=== PATIENT | male | born 1990 ===

== ENCOUNTER 2016-12-26 22:53 | Emergency (ER) | payer OTHER ==
[~2016-12-26] VITALS: Ht 180.3 cm; Wt 132.5 kg
[~2016-12-26 22:53] MED LIST: ALBU8.5H3 INH; BECL8.7A INH; CETI10CA PO; GUAI118L94 PO; IBUP-1542 PO; PRED50TA PO
[2016-12-26 23:26] VITALS: Ht 180.3 cm; Wt 132.5 kg
[2016-12-27] MEDS ORDERED: LEVALBUTEROL (NEB) 1.25 MG/0.5 ML AMP INH STA ×2 (00:08→02:12)
[2016-12-27] MEDS ORDERED: METHYLPREDNISOLONE 125 MG INJ IM STA (00:08)
[2016-12-27] MEDS ORDERED: IPRATROPIUM (NEB) 0.5 MG/2.5 ML AMP INH STA (00:08)
--- NOTE | 2016-12-27 01:33 | RADRPT ---
PROCEDURE: XR Chest. CLINICAL INDICATION: Asthma exacerbation TECHNIQUE: Single frontal view of the chest was obtained COMPARISON: 01/31/2016 FINDINGS: The heart and mediastinum are within normal limits. The lungs are clear. There is minimal peribronchial thickening could be secondary to history of asth ma. There is no pleural effusion or pneumothorax. IMPRESSION: Minimal peribronchial thickening which could be secondary to asthma. RPTAT: HJES .Ollie Nielsen MD, MD Date Time Electronically viewed and signed by .Ollie Nielsen MD, on 12/27/2016 01:33 .S/
[2016-12-27] MEDS ORDERED: ALBU18HF INHALATION (01:54)
[2016-12-27] MEDS ORDERED: PRED20TA PO (01:54)
--- NOTE | 2016-12-27 01:59 | ERD ---
ER Documentation Chief Complaint Date/Time DATE: 12/27/16 TIME: 01:55 Chief Complaint Asthma since 3 days ago. feeling worst today HPI 26-year-old male patient with a past medical history of asthma presents to the ED complaining of a cough that has been going on for 3 days. Reports that it is productive and he is coughing up whitish phlegm. States that he is also wheezing. Reports that he used his inhaler once. Denies any fever, chills, chest pain, abdominal pain, nausea, vomiting, diarrhea. Denies any recent traveling. Denies any leg swelling. ROS All systems reviewed and are negative except as per history of present illness. Medications Home Meds Active Scripts Albuterol Sulfate* (Ventolin HFA*) 18 Gm Hfa.aer.ad, 2 PUFF INHALATION Q4H, #1 INHALER Prov:ANNEL PADRON PA-C 12/27/16 Prednisone* (Prednisone*) 20 Mg Tab, 40 MG PO DAILY for 4 Days, TAB Prov:ANNEL PADRON PA-C 12/27/16 Beclomethasone Dip* (Qvar 40*) 7.3 Gm Inha, 2 PUFF INH BID, #1 INHALER Prov:MAEGAN ZIMMERMAN NP 01/31/16 Prednisone* (Prednisone*) 50 Mg Tablet, 50 MG PO DAILY, #5 TAB Prov:MAEGAN ZIMMERMAN NP 01/31/16 Ibuprofen* (Motrin*) 600 Mg Tab, 600 MG PO Q6H Y for PAIN AND OR ELEVATED TEMP, #30 TAB Prov:MAEGAN ZIMMERMAN NP 01/31/16 Cetirizine Hcl* (Zyrtec*) 10 Mg Capsule, 10 MG PO DAILY, #30 TAB.CHEW Prov:MAEGAN ZIMMERMAN NP 01/31/16 Guaifenesin-Codeine Phosphate* (Guaifenesin* with Codeine Liq) 120 Ml Liquid, 5 ML PO Q4H for COUGH, #60 ML Prov:MAEGAN ZIMMERMAN NP 01/31/16 Albuterol Sulfate* (Proair HFA*) 8.5 Gm Hfa.aer.ad, 2 PUFF INH Q4H Y for WHEEZING AND SOB, #1 INHALER Prov:MAEGAN ZIMMERMAN MENDOZA TTammi WELLS 01/31/16 Reported Medications Albuterol Sulfate* (Proair HFA*) Unknown Strength Hfa.aer.ad, INH Q6, #1 INHALER 01/31/16 Allergies Allergies: Coded Allergies: No Known Allergy (Unverified , 01/31/16) PMhx/Soc Medical and Surgical Hx: pt denies Medical Hx, pt denies Surgical Hx History of Surgery: No Anesthesia Reaction: No Hx Neurological Disorder: No Hx Respiratory Disorders: No (asthma) Hx Cardiac Disorders: No Hx Psychiatric Problems: No Hx Miscellaneous Medical Probl: No Hx Alcohol Use: No Hx Substance Use: No Hx Tobacco Use: No Physical Exam Vitals Vital Signs Date Time Temp Pulse Resp B/P Pulse Ox O2 Delivery O2 Flow Rate FiO2 12/27/16 00:39 88 24 93 21 12/26/16 23:26 97.4 105 30 134/84 95 Physical Exam Const: Zzz-hic-[id number], well-nourished. In no acute distress. Head: Atraumatic, normocephalic Eyes: Normal Conjunctiva without injection. No purulent discharge. PERRL. EOMI ENT: Normal external ear. Ear canal without erythema. Tympanic membrane pearly pederson without effusion or bulging. Nasal canal clear with normal turbinates. Moist oropharynx without tonsillar exudates. Non-erythematous pharynx. Uvula midline. No drooling. No trismus. Neck: Full range of motion. No meningismus. No cervical lymphadenopathy. Resp: Expiratory and inspiratory wheezing noted bilaterally. No rhonchi, rales , or crackles. No accessory muscle use. No retractions. Cardio: Regular rate and rhythm. No murmurs, rubs or gallops. Abd: Soft, non tender, non distended. Normal bowel sounds. No palpable masses. No rebound tenderness. No guarding. Skin: No petechiae or rashes Back: No midline tenderness. No CVA tenderness. Ext: No cyanosis, or edema. Neur: Awake and alert. Psych: Normal Mood and Affect Results 24 hrs Current Medications Medications (Trade) Dose Ordered Sig/Mayra Route PRN Reason Start Time Stop Time Status Last Admin Dose Admin Levalbuterol (Xopenex Neb) 5 mg ONCE STAT INH 12/27/16 00:08 12/27/16 00:10 DC 12/27/16 00:33 Ipratropium Lynn (Atrovent 0.02% (Neb)) 1 mg ONCE STAT INH 12/27/16 00:08 12/27/16 00:10 DC 12/27/16 00:32 Methylprednisolone Sodium Succinate (Solu-Medrol) 125 mg ONCE STAT IM 12/27/16 00:08 12/27/16 00:10 DC 12/27/16 00:28 Levalbuterol (Xopenex Neb) 5 mg ONCE STAT INH 12/27/16 02:12 12/27/16 02:14 DC 12/27/16 02:34 Procedures/MDM This is a 26-year-old male patient with a past medical history of asthma presents to the ED complaining of a cough that started 3 days ago and feels worse today. Patient is afebrile nontoxic appearing. Patient has normal vital signs. Patient is speaking in full sentences. A chest x-ray was ordered to further evaluate patient. A continuous breathing treatment consisting of 5 mg Xopenex, 1 mg Atrovent, 125 mg Solu-Medrol was ordered to further treat patient with improvement. PROCEDURE: XR Chest. CLINICAL INDICATION: Asthma exacerbation TECHNIQUE: Single frontal view of the chest was obtained COMPARISON: 01/31/2016 FINDINGS: The heart and mediastinum are within normal limits. The lungs are clear. There is minimal peribronchial thickening could be secondary to history of asthma. There is no pleural effusion or pneumothorax. IMPRESSION: Minimal peribronchial thickening which could be secondary to asthma. Patient likely has an asthma exacerbation. Low suspicion for atypical PA, pneumonia, pulmonary embolism, pneumothorax, cardiac tamponade, sinusitis, peritonsillar abscess, mastoiditis, Abraham's angina, retropharyngeal abscess, meningitis, sepsis or other emergent conditions. Patient's respiratory status has stabilized while in the department and is appropriate for outpatient work up. Exam and work up not consistent w/ impending respiratory failure or cardiovascular collapse. Discharge medications: Prednisone, Ventolin Follow up with primary care physician in 1-2 days. Instructed patient to return to the ED sooner for any worsening symptoms. Patient's questions were answered. Patient understood and agreed with discharge plan. Patient discharged stable. Departure Diagnosis: Primary Impression: Asthma attack Condition: Stable Patient Instructions: Asthma, Acute (Adult) Referrals: COMMUNITY CLINICS YOU HAVE RECEIVED A MEDICAL SCREENING EXAM AND THE RESULTS INDICATE THAT YOU DO NOT HAVE A CONDITION THAT REQUIRES URGENT TREATMENT IN THE EMERGENCY DEPARTMENT. FURTHER EVALUATION AND TREATMENT OF YOUR CONDITION CAN WAIT UNTIL YOU ARE SEEN IN YOUR DOCTORS OFFICE WITHIN THE NEXT 1-2 DAYS. IT IS YOUR RESPONSIBILITY TO MAKE AN APPOINTMENT FOR FOLOW-UP CARE. IF YOU HAVE A PRIMARY DOCTOR --you should call your primary doctor and schedule an appointment IF YOU DO NOT HAVE A PRIMARY DOCTOR YOU CAN CALL OUR PHYSICIAN REFERRAL HOTLINE AT IF YOU CAN NOT AFFORD TO SEE A PHYSICIAN YOU CAN CHOSE FROM THE FOLLOWING [facility] [address] [facility]. [facility] [address] [facility] [address] [facility] [address] [facility] [address] [facility]. [facility] [address] [facility]. [facility] YOU HAVE RECEIVED A MEDICAL SCREENING EXAM AND THE RESULTS INDICATE THAT YOU DO NOT HAVE A CONDITION THAT REQUIRES URGENT TREATMENT IN THE EMERGENCY DEPARTMENT. FURTHER EVALUATION AND TREATMENT OF YOUR CONDITION CAN WAIT UNTIL YOU ARE SEEN IN YOUR DOCTORS OFFICE WITHIN THE NEXT 1-2 DAYS. IT IS YOUR RESPONSIBILITY TO MAKE AN APPOINTMENT FOR FOLOW-UP CARE. IF YOU HAVE A PRIMARY DOCTOR --you should call your primary doctor and schedule and appointment IF YOU DO NOT HAVE A PRIMARY DOCTOR YOU CAN CALL OUR PHYSICIAN REFERRAL HOTLINE AT . IF YOU CAN NOT AFFORD TO SEE A PHYSICIAN YOU CAN CHOSE FROM THE FOLLOWING [facility]: [facility] [address] [place] [address] [facility] [address] [place] [address] [facility] [address] [place] [address] [facility] Additional Instructions: Call your primary care doctor TOMORROW for an appointment during the next 1-2 days for management of your asthma.See the doctor sooner or return here if your condition worsens before your appointment time - wheezing, shortness of breath, fever, chills. ANNEL PADRON PA-C Dec 27, 2016 01:59
[2016-12-27 02:14] VITALS: BP 133/71; RESP 20; TEMP 97.8
[2016-12-27 03:41] VITALS: PULSE 120
== END 2016-12-27 03:50 | disposition home or self-care (01) ==
LOC: FTE 22:53
DX: J45.901 Unspecified asthma with (acute) exacerbation (principal)
CPT/HCPCS: 71010; 94644; 94645; 96372; J2930; Z7502; Z7610